=== PATIENT | female | born 1970 | race Caucasian/White ===

== ENCOUNTER 2021-01-04 09:03 | Emergency (ER) | payer OTHER ==
[~2021-01-04] VITALS: Ht 182.9 cm; Wt 161.8 kg
[2021-01-04 09:07] VITALS: BP 117/54
[2021-01-04] MEDS ORDERED: ondansetron 4mg rapidly disintigrating tab PO ONE (09:30)
[2021-01-04] MEDS ORDERED: morphine 4 MG/ML inj SYRINge IM ONE (09:30)
[2021-01-04] MEDS ORDERED: ketorolac tromethamine 15mg/ml inj. IM ONE (09:30)
[2021-01-04] MEDS ORDERED: ORPH100T2 PO (10:31)
[2021-01-04] MEDS ORDERED: IBUP-1984 PO (10:31)
== END 2021-01-04 10:49 | disposition home or self-care (01) ==
LOC: ER 09:04
DX: M54.42 Lumbago with sciatica, left side (principal); M62.830 Muscle spasm of back; Z79.899 Other long term (current) drug therapy
CPT/HCPCS: 96372; 99284; J1885; J2270